=== PATIENT | male | born 1975 | race Caucasian/White ===

== ENCOUNTER 2016-04-16 00:04 | Emergency (ER) | payer OTHER ==
[~2016-04-16] VITALS: Wt 79.0 kg
[2016-04-16 02:04] LABS: ADD UMIC NO; URINE BILIRUBIN (Dip) NEGATIVE (NEGATIVE); URINE BLOOD (Dip) NEGATIVE (NEGATIVE); URINE COLOR LT. YELLOW (YELLOW); URINE GLUCOSE (Dip) NEGATIVE (NEGATIVE); URINE KETONES (Dip) 3+ (NEGATIVE); URINE LEUKOCYTE ESTERASE (Dip) NEGATIVE (NEGATIVE); URINE NITRITE (Dip) NEGATIVE (NEGATIVE); URINE TOTAL PROTEIN (Dip) NEGATIVE (NEGATIVE); URINE UROBILINOGEN (Dip) 0.2 E.U./dL (0.1-1.0)
[2016-04-16 02:13] LABS: BASOPHILS % 0.3 % (0.0-2.0); EOSINOPHILS % 0.5 % (0.0-7.0); HEMATOCRIT 48.8 % (42.0-52.0); HEMOGLOBIN 16.7 g/dl (14.0-18.0); LYMPHOCYTES # 1.4 10^3/ul (0.8-2.9); LYMPHOCYTES % 14.2 % (15.0-51.0); MEAN CORPUSCULAR HGB CONC 34.1 g/dl (32.0-37.0); MEAN CORPUSCULAR VOLUME 90.7 fl (82.0-101.0); MEAN PLATELET VOLUME 9.7 fl (7.4-10.4); MONOCYTE # 0.7 10^3/ul (0.3-0.9); MONOCYTES % 7.3 % (0.0-11.0); NEUTROPHIL # 7.6 10^3/ul (1.6-7.5); NEUTROPHILS % 77.7 % (39.0-77.0); PLATELET COUNT 179 10^3/UL (140-440); RED BLOOD COUNT 5.38 10^6/ul (4.70-6.10); RED CELL DISTRIBUTION WIDTH 13.4 % (11.5-14.5); UNCORRECTED WBC 9.7 10^3/ul (4.8-10.8); WHITE BLOOD COUNT 9.7 10^3/ul (4.8-10.8)
[2016-04-16 02:24] LABS: ALBUMIN 5.1 g/dl (3.3-4.9)
[2016-04-16 02:25] LABS: CHLORIDE 102 mmol/L (97-110); SODIUM 143 mmol/L (135-144)
[2016-04-16 02:27] LABS: ALBUMIN/GLOBULIN RATIO 1.37; ANION GAP 21 (8-16); ASPARTATE AMINO TRANSFERASE 31 IU/L (15-46); BILIRUBIN,INDIRECT 0.7 mg/dl (0-1.1); BILIRUBIN,TOTAL 0.7 mg/dl (0.2-1.3); CARBON DIOXIDE 24 mmol/L (21-31); TOTAL PROTEIN 8.8 g/dl (6.1-8.1)
[2016-04-16 02:28] LABS: ALANINE AMINOTRANSFERASE 29 IU/L (13-69); ALKALINE PHOSPHATASE 79 IU/L (42-121); BLOOD UREA NITROGEN 14 mg/dl (7-20); CALCIUM 9.9 mg/dl (8.4-10.2); GLUCOSE 110 mg/dl (70-220)
[2016-04-16 02:30] LABS: ACETAMINOPHEN < 10.0 ug/ml (10.0-30.0); ETHANOL < 10.0 mg/dl; SALICYLATE < 1.0 mg/dl (5.0-30.0)
[2016-04-16 02:51] LABS: BARBITURATES Negative (NEGATIVE); BENZODIAZEPINES Negative (NEGATIVE); CANNABINOIDS Negative (NEGATIVE); COCAINE Negative (NEGATIVE); OPIATES Negative (NEGATIVE)
--- NOTE | 2016-04-16 03:01 | ERA ---
ER Documentation Chief Complaint Date/Time DATE: 04/16/16 TIME: 03:00 Chief Complaint feeling weird&paranoid, acting weird as per family x 3 days HPI Is a 40-year-old male comes in feeling weird and paranoid. Per his family's been acting "weird "for the past 3 days. Patient is very sounds and answers questions very tangentially. ROS All systems reviewed and are negative except as per history of present illness. Medications Home Meds No Active Prescriptions or Reported Meds Allergies Allergies: Coded Allergies: No Known Allergy (Unverified , 01/15/13) PMhx/Soc Hx Alcohol Use: No Hx Substance Use: No Hx Tobacco Use: No Physical Exam Vitals Vital Signs Date Time Temp Pulse Resp B/P Pulse Ox O2 Delivery O2 Flow Rate FiO2 04/16/16 00:05 98.9 124 22 142/94 100 Physical Exam Const: [] Head: Atraumatic Eyes: Normal Conjunctiva ENT: Normal External Ears, Nose and Mouth. Neck: Full range of motion..~ No meningismus. Resp: Clear to auscultation bilaterally Cardio: Regular rate and rhythm, no murmurs Abd: Soft, non tender, non distended. Normal bowel sounds Skin: No petechiae or rashes Back: No midline or flank tenderness Ext: No cyanosis, or edema Neur: Awake and alert Psych: Normal Mood and Affect Result Diagram: 04/16/16 0155 Results 24 hrs Laboratory Tests Test 04/16/16 01:25 04/16/16 01:55 Urine Amphetamines Screen Negative Urine Barbiturates Negative Urine Benzodiazepines Screen Negative Urine Bilirubin NEGATIVE Urine Cannabinoids Negative Urine Clarity CLEAR Urine Cocaine Screen Negative Urine Color LT. YELLOW Urine Glucose NEGATIVE% Urine Hemoglobin NEGATIVE Urine Ketones 3+ Urine Leukocyte Esterase NEGATIVE Urine Nitrite NEGATIVE Urine Opiates Screen Negative Urine Specific [place] 1.025 Urine Total Protein NEGATIVE Urine Urobilinogen 0.2 E.U./dL Urine pH 6.0 Acetaminophen Level < 10.0ug/ml Alanine Aminotransferase (ALT/SGPT) 29IU/L Albumin 5.1g/dl Albumin/Globulin Ratio 1.37 Alkaline Phosphatase 79IU/L Anion Gap 21 Aspartate Amino Transf (AST/SGOT) 31IU/L Blood Urea Nitrogen 14mg/dl Calcium Level 9.9mg/dl Carbon Dioxide Level 24mmol/L Chloride Level 102mmol/L Creatinine 1.00mg/dl Direct Bilirubin 0.00mg/dl Ethyl Alcohol Level < 10.0mg/dl Globulin 3.70g/dl Glucose Level 110mg/dl Indirect Bilirubin 0.7mg/dl Potassium Level 4.0mmol/L Salicylates Level < 1.0mg/dl Sodium Level 143mmol/L Total Bilirubin 0.7mg/dl Total Protein 8.8g/dl Procedures/MDM Patient's behavioral symptoms have stabilized while in the department. Patient is medically cleared and appropriate for psychiatric evaluation and work up. No e/o neurologic, toxic, infectious, or metabolic cause. Departure Diagnosis: Primary Impression: Psychological disorder Condition: Stable SYLWIA FIELDS Apr 16, 2016 03:01
[2016-04-16 03:23] LABS: CONDITION 1; LH ANALYZER COMMENTS 1; SUSPECT 1
--- NOTE | 2016-04-16 04:36 | PSY ---
Date/Time of Note Date/Time of Note DATE: 04/16/16 TIME: 02:52 Psychiatric Subjective Eval Subjective Evaluation Chief Complaint: feeling weird&paranoid, acting weird as per family x 3 days History of present illness patient is a 40 yo male with no PPH who was brought in to the ER by his with whom he is due to one week psychosis. Yesterday he called his from [place] stating that he was lost and she had to pick him up. He has been feeling anxious for many days now , feeling confused and disorganized. He states that he has not eaten for few days and has not slept well, he denies feeling suicidal , he states that he does not know what going is on with him, he states that his mind is going crazy , states that he does not know if he is dreaming or if he is awake , he feels like his heart is not pumping and he smells somebody that is , he is very confused and disorganized and times illogical. he denies hearing voices or seeing things and denies using any drugs. Allergies: Coded Allergies: No Known Allergy (Unverified , 01/15/13) Substance Abuse Substance use: No known substance abuse Social History Marital status: other Level of education: DPA/Conservatorship: No Occupation/Alf: unemployed Psychiatric Objective Eval Review of Systems: Review of Systems: Not Applicable Physical Examination: Physical Examination: Applicable Sleep: Insomnia Appetite: Adequate, Decreased, Weight Loss Energy: Decreased Interest: Decreased Mental Status Examination: Appearance: Groomed Eye Contact: Good Psychomotor Activity: Normal Behavior: Cooperative Speech: Disorganized AFFECT: [place] Mood: Anxious Though Process: Loose Thought Content: Delusions Suicidal: No Homicidal: No On 72 hour hold: No Orientation: x2 Cognition: Alert Insight: Impared Judgement: Impared Attention Span: Distractible Laboratory Results Laboratory Tests Test 04/16/16 01:25 04/16/16 01:55 Urine Amphetamines Screen Negative Urine Barbiturates Negative Urine Benzodiazepines Screen Negative Urine Bilirubin NEGATIVE Urine Cannabinoids Negative Urine Clarity CLEAR Urine Cocaine Screen Negative Urine Color LT. YELLOW Urine Glucose NEGATIVE% Urine Hemoglobin NEGATIVE Urine Ketones 3+ Urine Leukocyte Esterase NEGATIVE Urine Nitrite NEGATIVE Urine Opiates Screen Negative Urine Specific [place] 1.025 Urine Total Protein NEGATIVE Urine Urobilinogen 0.2 E.U./dL Urine pH 6.0 Acetaminophen Level < 10.0ug/ml Alanine Aminotransferase (ALT/SGPT) 29IU/L Albumin 5.1g/dl Albumin/Globulin Ratio 1.37 Alkaline Phosphatase 79IU/L Anion Gap 21 Aspartate Amino Transf (AST/SGOT) 31IU/L Blood Urea Nitrogen 14mg/dl Calcium Level 9.9mg/dl Carbon Dioxide Level 24mmol/L Chloride Level 102mmol/L Creatinine 1.00mg/dl Direct Bilirubin 0.00mg/dl Ethyl Alcohol Level < 10.0mg/dl Globulin 3.70g/dl Glucose Level 110mg/dl Indirect Bilirubin 0.7mg/dl Potassium Level 4.0mmol/L Salicylates Level < 1.0mg/dl Sodium Level 143mmol/L Total Bilirubin 0.7mg/dl Total Protein 8.8g/dl Assessment and Plan Assessment/Diagnosis [place] I: psychosis nos [place] II: deferred [place] III: as per record [place] IV: poor social support [place] V: gaf 25 Recommendation/Plan Medication Management zyprexa 10 mg po bid for psychosis Follow-up/Disposition Patient cannot be treated at a lower level of care today due to GRAVE DISABLITY including an inability to carry out basic transactions necessary for survival in these areas and as evidenced by these behaviors: ] - Unable to seek out Food, Unable to seek out Clothing, Unable to seek out Prison, Severe Financial Incompetence, Severe Failure to Adjust in the Community, Severe Incompetence in Regards to Health Self-Management - Patient is labile,intrusive and socially inappropriate with personal boundaries - Confused, disoriented and/or grossly unable to distinguish reality from illusion -Requires near constant monitoring to prevent inadvertent danger to self and others -No family members willing and able to care for patient in the community with this mental state [id number] Recommendation: MINDI Le MD Apr 16, 2016 04:36
--- NOTE | 2016-04-16 14:51 | RADRPT ---
PROCEDURE: CT head without Contrast CLINICAL INDICATION: The patient is in need of medical clearance TECHNIQUE: Transaxial images were made through the head on a multi-slice scanner without intraveno us contrast. Coronal and sagittal images were subsequently reformatted. One or more of the following dose reduction techniques were used: - Automated exposure control. - Adjustment of the mA and/or kV according to patient size. - Use of iterative reconstruction technique. Radiation dose: CTDIvol = 60.41 mGy; DLP = 845.69 mGy-cm. COMPARISON: 01/15/2013 FINDINGS: The calvarium appears intact. The mastoid air cells and paranasal sinuses are well-aerated.. The ventricles are normal in size and there is no midline shift. No intracranial bleed, mass, or extra-axial fluid collection is identified. There is good henao-white matter differentiation. IMPRESSION: Stable unremarkable noncontrast enhanced CT scan of the head. Physician Sonu Date Time Electronically viewed and signed by Physician Sonu on 04/16/2016 14:51 /
[2016-04-16 16:25] VITALS: BP 135/87; PULSE 70; RESP 20; TEMP 98.3
== END 2016-04-16 16:27 ==
LOC: E/R 00:04
DX: F29 Unspecified psychosis not due to a substance or known physiological condition (principal); R40.2242 Coma scale, best verbal response, confused conversation, at arrival to emergency department; R40.2362 Coma scale, best motor response, obeys commands, at arrival to emergency department; R40.2142 Coma scale, eyes open, spontaneous, at arrival to emergency department
CPT/HCPCS: 36415; 70450; 80053; 80306; 80307; 81003; 85025